=== PATIENT | male | born 1980 | race Caucasian/White ===

== ENCOUNTER 2018-01-24 18:19 | Day surgery (SDC) | payer OTHER ==
--- NOTE | 2018-01-24 19:21 | ER Document Report ---
ED Medical Screen (RME) - General Chief Complaint: Abdominal Pain Stated Complaint: ABDOMINAL PAIN Time Seen by Provider: 01/24/18 19:13 Notes: RAPID MEDICAL EVALUATION DISCLOSURE I have seen this patient as part of a Rapid Medical Evaluation and, if applicable, placed any initially appropriate orders. The patient will be seen and fully evaluated, including a full history and physical exam, by a provider ( in Main ED or Fast Track) when a room becomes available. 37-year-old male here with complaints of periumbilical abdominal pain ongoing for the past few days progressively worsening. Pain is worse with coughing and straining. He still has some at rest. He has not seen anything pop out but when he places his hand over the area while coughing he can feel something bulging out. He has a history of bilateral inguinal hernia repairs but has no prior history of umbilical hernia however states that the laparoscope entered his abdomen through the area where he is currently having pain. EXAM Mild tenderness to palpation at umbilicus With patient coughing, bowel is palpated at area of concern No peritoneal signs TRAVEL OUTSIDE OF THE [place] IN LAST 30 DAYS: No - Related Data Allergies/Adverse Reactions: No Known Allergies Allergy (Unverified 01/24/18 18:25) Past Medical History - Social History Chew tobacco use (# tins/day): No Frequency of alcohol use: Social Drug Abuse: None Renal/ Medical History: Denies: Hx Peritoneal Dialysis
[2018-01-24 20:46] LABS: ABSOLUTE EOSINOPHILS # (AUTO) 0.2 10^3/uL (0.0-0.6); ABSOLUTE LYMPHOCYTES (AUTO) 2.8 10^3/uL (0.5-4.7); ABSOLUTE MONOCYTES (AUTO) 0.8 10^3/uL (0.1-1.4); ABSOLUTE NEUT (AUTO) 4.7 10^3/uL (1.7-8.2); BASOPHILS % (AUTO) 0.4 % (0-2); EOSINOPHILS % (AUTO) 2.3 % (0-6); HEMOGLOBIN 16.5 g/dL (13.5-17.0); LYMPHOCYTES % (AUTO) 33.2 % (13-45); MEAN CORPUSCULAR HEMOGLOBIN 32.1 pg (27.0-33.4); MEAN CORPUSCULAR HGB CONC 34.4 g/dL (32.0-36.0); MEAN CORPUSCULAR VOLUME 93 fl (80-97); MONOCYTES % (AUTO) 9.1 % (3-13); PLATELET COUNT 270 10^3/uL (150-450); RED BLOOD COUNT 5.14 10^6/uL (4.35-5.55); RED CELL DISTRIBUTION WIDTH 12.6 % (11.5-14.0); TOTAL CELLS COUNTED % (AUTO) 100 %; WHITE BLOOD COUNT 8.5 10^3/uL (4.0-10.5)
[2018-01-24 21:04] LABS: ALANINE AMINOTRANSFERASE 37 U/L (21-72); ALBUMIN 4.4 g/dL (3.5-5.0); ALKALINE PHOSPHATASE 73 U/L (38-126); ANION GAP 14 (5-19); ASPARTATE AMINO TRANSFERASE 24 U/L (17-59); BILIRUBIN,DIRECT 0.3 mg/dL (0.0-0.4); BILIRUBIN,TOTAL 0.4 mg/dL (0.2-1.3); BLOOD UREA NITROGEN 13 mg/dL (7-20); CALCIUM 9.5 mg/dL (8.4-10.2); CARBON DIOXIDE 29 mmol/L (22-30); CHLORIDE 100 mmol/L (98-107); GLUCOSE 94 mg/dL (75-110); LIPASE 71.3 U/L (23-300); POTASSIUM 4.9 mmol/L (3.6-5.0); SODIUM 143.3 mmol/L (137-145); TOTAL PROTEIN 7.3 g/dL (6.3-8.2)
[2018-01-24 21:54] LABS: APPEARANCE,URINE CLEAR; BILIRUBIN,URINE NEGATIVE (NEGATIVE); COLOR,URINE YELLOW; GLUCOSE, URINE NEGATIVE (NEGATIVE); KETONES,URINE NEGATIVE (NEGATIVE); LEUKOCYTE ESTERASE,URINE NEGATIVE (NEGATIVE); NITRITE,URINE NEGATIVE (NEGATIVE); PROTEIN,URINE NEGATIVE (NEGATIVE); URINE SPECIFIC GRAVITY 1.017; UROBILINOGEN,URINE NEGATIVE mg/dL (<2.0)
--- NOTE | 2018-01-24 22:19 | ER Document Report ---
ED General - General Mode of Arrival: Ambulatory Information source: Patient TRAVEL OUTSIDE OF THE [place] IN LAST 30 DAYS: No <GABBY GATES - Last Filed: 01/24/18 22:29> <JOSELIN BLOCK - Last Filed: 01/24/18 23:56> - General Chief Complaint: Abdominal Pain Stated Complaint: ABDOMINAL PAIN Time Seen by Provider: 01/24/18 19:13 Notes: Patient is a 37 year old male with a history of bilateral inguinal hernia repairs with mesh (15 years ago) presents to the emergency department complaining of periumbilical abdominal pain onset a few days ago worsening today. Patient states that he has had some abdominal pain over the last few days but when he sat on the toilet this morning and coughed it made is abdominal pain worse. Patient states the pain is exacerbated with coughing and straining. (GABBY GATES) The patient reports that the first doctor to see him pushed very hard on the abdomen when he coughed and pushed the bulk of the hernia mass back inside. After the CT scan the patient states he is actually feeling much better, although the CT does show with 3.8 cm paraumbilical fat-containing hernia. ( JOSELIN BLOCK) - Related Data Allergies/Adverse Reactions: No Known Allergies Allergy (Unverified 01/24/18 18:25) Past Medical History - General Information source: Patient - Social History Smoking Status: Former Smoker - Quit 3 years ago, currently uses E-cigs Chew tobacco use (# tins/day): No Frequency of alcohol use: Social Drug Abuse: None Patient has suicidal ideation: No Patient has homicidal ideation: No Past Surgical History: Reports: Hx Inguinal Hernia - Bilateral inguinal repairs with mesh performed 15 years ago. <GABBY GATES - Last Filed: 01/24/18 22:29> Review of Systems - Review of Systems Constitutional: No symptoms reported EENT: No symptoms reported Cardiovascular: No symptoms reported Respiratory: No symptoms reported Gastrointestinal: See HPI, Abdominal pain Genitourinary: No symptoms reported Male Genitourinary: No symptoms reported Musculoskeletal: No symptoms reported Skin: No symptoms reported Hematologic/Lymphatic: No symptoms reported Neurological/Psychological: No symptoms reported -: Yes All other systems reviewed and negative <GABBY GATES - Last Filed: 01/24/18 22:29> Physical Exam - General General appearance: Appears well, Alert In distress: None - HEENT Head: Normocephalic, Atraumatic Eyes: Normal Conjunctiva: Normal Extraocular movements intact: Yes Pupils: PERRL - Respiratory Respiratory status: No respiratory distress Chest status: Nontender Breath sounds: Normal Chest palpation: Normal - Cardiovascular Rhythm: Regular Heart sounds: Normal auscultation Murmur: No Friction rub: No Gallop: None auscultated - Abdominal Inspection: Obese Distension: No distension Bowel sounds: Normal Tenderness: Tender - RLQ tender to palpaiton which reproduces umbilical pain. Tender to palpation just above the umbilicus region. No palpable hernia. - Back Back: Normal - Extremities General upper extremity: Normal ROM General lower extremity: Normal ROM - Neurological Neuro grossly intact: Yes Cognition: Normal Orientation: AAOx4 [place] Coma Scale Eye Opening: Spontaneous [place] Coma Scale Verbal: Oriented Elisabeth Coma Scale Motor: Obeys Commands [place] Coma Scale Total: 15 Speech: Normal - Psychological Associated symptoms: Normal affect, Normal mood - Skin Skin Temperature: Warm Skin Moisture: Dry Skin Color: Normal <GABBY GATES - Last Filed: 01/24/18 22:29> - Vital signs Vitals: Temp Pulse Resp BP Pulse Ox 98.6 F 70 16 146/84 H 96 01/24/18 18:25 01/24/18 18:25 01/24/18 18:25 01/24/18 18:25 01/24/18 18:25 Course - Laboratory Result Diagrams: 01/24/18 20:29 01/24/18 20:29 <GABBY GATES - Last Filed: 01/24/18 22:29> - Laboratory Result Diagrams: 01/24/18 20:29 01/24/18 20:29 - Diagnostic Test Radiology reviewed: Reports reviewed - 3.8 cm fat-containing paraumbilical hernia without signs of inflammation. - Consults Dr. Blount Time consulted: 23:40 Consulted provider: will come to ER <JOSELIN BLOCK - Last Filed: 01/24/18 23:56> - Re-evaluation Re-evalutation: 01/24/18 23:46 Reevaluation of the patient after CT scan, he is quite comfortable and states he has no pain at all at this time. I am not really able to palpate much of a hernia if anything except when he coughs hard. He does have significant diastases just above the umbilicus. (JOSELIN BLOCK) - Vital Signs Vital signs: Temp Pulse Resp BP Pulse Ox 98.6 F 70 16 146/84 H 96 01/24/18 18:25 01/24/18 18:25 01/24/18 18:25 01/24/18 18:25 01/24/18 18:25 Discharge <GABBY GATES - Last Filed: 01/24/18 22:29> - Discharge Admitting Provider: Surgicalist Unit Admitted: Surgical Floor <JOSELIN BLOCK - Last Filed: 01/24/18 23:56> - Discharge Clinical Impression: Paraumbilical hernia Condition: Stable Disposition: ADMITTED INPATIENT Scribe Attestation: 01/24/18 22:54 I personally performed the services described in the documentation, reviewed and edited the documentation which was dictated to the scribe in my presence, and it accurately records my words and actions. (JOSELIN BLOCK) Scribe Documentation - Scribe Written by Alton:: Alton Perdomo, 01/24/2018 22:32 acting as scribe for :: Frandy <GABBY GATES - Last Filed: 01/24/18 22:29>
--- NOTE | 2018-01-24 23:26 | RADIOLOGY REPORT (SQ) ---
EXAM DESCRIPTION: CT ABD/PELVIS WITH IV ORAL COMPLETED DATE/TIME: 01/24/2018 10:46 pm REASON FOR STUDY: umbilical hernia pain; eval COMPARISON: None. TECHNIQUE: CT scan of the abdomen and pelvis performed using helical scanning technique with dynamic intravenous contrast injection. No oral contrast. Images reviewed with lung, soft tissue, and bone windows. Reconstructed coronal and sagittal MPR images reviewed. Delayed images for evaluation of the urinary system also acquired. All images stored on PACS. All CT scanners at this facility use dose modulation, iterative reconstruction, and/or weight based d osing when appropriate to reduce radiation dose to as low as reasonably achievable (ALARA). [facility]: Dose Right [facility]: CareDose [facility]: Dose Right [facility]: Teradose 4D [facility]: [place] RENAL FUNCTION: GFR > 60. RADIATION DOSE: . LIMITATIONS: None. FINDINGS: LOWER CHEST: No significant findings. No nodules or infiltrates. LIVER: Normal size. No masses. No dilated ducts. SPLEEN: Normal size. No focal lesions. PANCREAS: No masses. No significant calcifications. No adjacent inflammation or peripancreatic fluid collections. Pancreatic duct not dilated. GALLBLADDER: No identified stones by CT criteria. No inflammatory changes to suggest cholecystitis. ADRENAL GLANDS: No significant masses or asymmetry. RIGHT KIDNEY AND URETER: No solid masses. No significant calcifications. No hydronephrosis or hyd roureter. LEFT KIDNEY AND URETER: No solid masses. No significant calcifications. No hydronephrosis or hydr oureter. AORTA AND VESSELS: No aneurysm. No dissection. Renal arteries, SMA, celiac without stenosis. RETROPERITONEUM: No retroperitoneal adenopathy, hemorrhage or masses. BOWEL AND PERITONEAL CAVITY: No masses or inflammatory changes. No free fluid or peritoneal masses. APPENDIX: Normal. PELVIS: No mass. No free fluid. Normal bladder. ABDOMINAL WALL: 3.8 cm fat containing paraumbilical hernia. BONES: No acute findings. OTHER: No other significant finding. IMPRESSION: 3.8 cm fat containing paraumbilical hernia. Otherwise, no acute findings. TECHNICAL DOCUMENTATION: JOB ID: [id number] Quality ID # [id number]: Final reports with documentation of one or more dose reduction techniques (e.g., Au tomated exposure control, adjustment of the mA and/or kV according to patient size, use of iterative reconstruction technique) 2010 [employer]- All Rights Reserved Reading location - IP/workstation name: [email or web address]
--- NOTE | 2018-01-25 00:13 | PDOC H&P ---
History of Present Illness Admission Date/PCP: 01/25/18 00:00 History of Present Illness: POLA BRAUN is a 37 year old male with a hx of bulge and pain at the umbilicus. A CT scan A/P has been done tonight revealing a fat containing umbilical hernia. Social History Smoking Status: Former Smoker - Quit 3 years ago, currently uses E-cigs Family History Family History: Reviewed & Not Pertinent Parental Family History Reviewed: No Children Family History Reviewed: No Sibling(s) Family History Reviewed.: No Medication/Allergy Allergies/Adverse Reactions: No Known Allergies Allergy (Unverified 01/24/18 18:25) Physical Exam Vital Signs: Temp Pulse Resp BP Pulse Ox 98.6 F 70 16 146/84 H 96 01/24/18 18:25 01/24/18 18:25 01/24/18 18:25 01/24/18 18:25 01/24/18 18:25 General appearance: PRESENT: no acute distress, morbidly obese Head exam: PRESENT: atraumatic Eye exam: PRESENT: EOMI Neck exam: PRESENT: full ROM Respiratory exam: PRESENT: clear to auscultation henrique Cardiovascular exam: PRESENT: RRR GI/Abdominal exam: PRESENT: hernia - umbilical, normal bowel sounds, soft, other - presence of defect at the umbilicus Rectal exam: PRESENT: deferred Neurological exam: PRESENT: alert, altered, normal gait Psychiatric exam: PRESENT: appropriate affect Skin exam: PRESENT: warm Results Impressions: Abdomen/Pelvis CT 01/24/18 19:19 IMPRESSION: 3.8 cm fat containing paraumbilical hernia. Otherwise, no acute findings. Assessment & Plan - Diagnosis (1) Paraumbilical hernia Is this a current diagnosis for this admission?: Yes - Plan Summary Plan Summary: A/ Incarcerated paraumbilical hernia containing fat P/ Admit NPO IVF Plan open umbilical herniorraphy with mesh in AM 01/25/18
[2018-01-25] MEDS ORDERED: NORMAL SALINE 1000 ML 1,000 ML IV PRN (01:55)
[2018-01-25] MEDS ORDERED: CEFAZOLIN 2 GM/D5W RTU 2 GM/50 ML RTUPB IV PRN (07:00)
[2018-01-25] MEDS ORDERED: CEFAZOLIN SODIUM 2 GM in DEXTROSE 5%-WATER 100 ML IV PRN (07:18)
[2018-01-25] MEDS ORDERED: FENTANYL CITRATE INJ/PF 100 MCG/2 ML AMPUL ONE (09:01)
[2018-01-25] MEDS ORDERED: ACETAMINOPHEN 100 ML IV ONE (09:01)
[2018-01-25] MEDS ORDERED: MIDAZOLAM 2 MG/2 ML INJ ONE (09:01)
[2018-01-25] MEDS ORDERED: FENTANYL CITRATE INJ/PF 250 MCG/5 ML AMPULE ONE (09:01)
[2018-01-25] MEDS ORDERED: PROPOFOL INJ 200 MG/20 ML VIAL IV ONE (09:01)
[2018-01-25] MEDS ORDERED: MORPHINE SULFATE 10 MG/ML INJ ONE (09:02)
[2018-01-25] MEDS ORDERED: BUPIVACAINE HCL 0.5%-EPI 1:200000 INJ/PF 30 ML VIAL ONE (09:16)
[2018-01-25] MEDS ORDERED: FENTANYL CITRATE INJ/PF 100 MCG/2 ML AMPUL IV PRN ×3 (10:06)
[2018-01-25] MEDS ORDERED: MORPHINE SULFATE 10 MG/ML INJ IV PRN (10:06)
[2018-01-25] MEDS ORDERED: MEPERIDINE HCL/PF INJ 25 MG/1 ML DISP.SYRIN IV PRN (10:06)
[2018-01-25] MEDS ORDERED: DIPHENHYDRAMINE HCL 50 MG/ML VIAL IV PRN (10:06)
[2018-01-25] MEDS ORDERED: PROMETHAZINE HCL INJ 25 MG/1 ML VIAL IV PRN (10:06)
--- NOTE | 2018-01-25 11:14 | DISCHARGE SUMMARY E ---
Discharge Summary NAME: POLA BRAUN : 1980 AGE: 37Y ADMITTED: 01/25/2018 DISCHARGED: 01/25/2018 FINAL DIAGNOSIS: Incarcerated umbilical hernia. PROCEDURE: Incarcerated umbilical herniorrhaphy with Ventralex mesh on 01/25. COMPLICATIONS: None. HOSPITAL COURSE: This is a morbidly obese 37-year-old male who presented to the emergency room early in the morning on 01/25/2018 with a complaint of umbilical bulge and pain. A CAT scan was done revealing the presence of an incarcerated umbilical hernia containing omental fat. The patient was admitted overnight and taken to surgery the following morning for repair of the hernia. The procedure was uneventful. His postop course was unremarkable. DISCHARGE INSTRUCTIONS/FOLLOWUP: The patient was then discharged the same day, 01/25, and he was given a followup appointment with the surgical clinic in a week. He was instructed to remove the tape and sponges the day following the surgery to leave the Tegaderm in place and to shower only for about 2 weeks. No heavy lifting more than 10 pounds for 3 months. Regular diet. Tylenol and Aleve for pain. The patient was given an abdominal binder for pain control and instructed to resume diet and resume driving in a.m. DICTATING PHYSICIAN: MAREN ROBERTS M.D. [id number] PHY#: [id number] ID: [id number] JOB#: [id number] ACCT: [id number] cc:rC TONG MD, M.D. MARSHALL B. FRINK, M.D. > MTDD
--- NOTE | 2018-01-25 11:16 | OPERATIVE REPORT E ---
Operative Report NAME: POLA BRAUN : 1980 AGE: 37Y DATE OF SURGERY: 01/25/2018 ROOM: 414 PREOPERATIVE DIAGNOSIS: Incarcerated umbilical hernia. POSTOPERATIVE DIAGNOSIS: Incarcerated umbilical hernia. PROCEDURE: Open incarcerated umbilical herniorrhaphy with Ventralex mesh. SURGEON: MAREN ROBERTS M.D. COMPLICATIONS: None. ANESTHESIA: General plus 10 mL of 0.5% Marcaine with epinephrine. FLUIDS: 550 mL of Crystalloid. COMPLICATIONS: None. URINE OUTPUT: Not applicable. INDICATIONS AND FINDINGS: This is a healthy 37-year-old morbidly obese male who presented to the emergency room with umbilical pain and bulge yesterday evening. A CAT scan revealed the presence of an incarcerated umbilical hernia containing fat. The patient was admitted overnight and scheduled for umbilical herniorrhaphy with mesh today. DESCRIPTION OF PROCEDURE: The procedure was done in the operating room. Patient was placed in the supine position. General anesthesia was induced by endotracheal intubation. Abdomen was shaved, prepped and draped in the usual fashion. A lower umbilical smiley incision was made with a #15 blade; an upper skin flap was elevated with the same blade and then with Metzenbaum scissors. The umbilical sac was then gently dissected with Metzenbaum scissors circumferentially, detached from the umbilical skin. The sac was then left undisturbed and pushed inside the preperitoneal space. The preperitoneal space was then entered with an index finger, which was rotated circumferentially to develop a space in the preperitoneum. After this was accomplished, a 6.8 mm Ventralex mesh was inserted with an Allis clamp into the preperitoneal space and deployed. The edges of the defect were approximated with an 0-Prolene [id number] suture, which was incorporated in the tail of the mesh. The tail of the mesh was then divided to length. The subcutaneous tissue was irrigated with normal saline. Deep inverted interrupted 3-0 Vicryl sutures were placed to approximate the subcutaneous tissue. The skin was approximated with 4-0 running subcuticular suture. Dermabond was then applied on the wound, followed by 2 x 2 sponge, and tape as a compressive dressing. The patient tolerated the procedure well, extubated, and transferred to the recovery room in satisfactory condition. DICTATING PHYSICIAN: MAREN ROBERTS M.D. [id number] PHY#: [id number] ID: [id number] JOB#: [id number] ACCT: [id number] cc:MAREN ROBERTS M.D. > OFELIA
--- NOTE | 2018-01-25 11:16 | Operative Report ---
Nonrecallable Operative Report DATE OF SURGERY: 01/25/18 PREOPERATIVE DIAGNOSIS: incarcerated umbilical hernia POSTOPERATIVE DIAGNOSIS: same OPERATION: open umbilical herniorraphy with Ventralex mesh SURGEON: MAREN ROBERTS ANESTHESIA: GA - plus 10 mL 0.5% marcaine with epi TISSUE REMOVED OR ALTERED: none COMPLICATIONS: none ESTIMATED BLOOD LOSS: < 2 mL INTRAOPERATIVE FINDINGS: umbilical hernia sac PROCEDURE: see dictation
[2018-01-25] MEDS ORDERED: ONDANSETRON HCL INJ/PF 4 MG/2 ML SDV IV PRN (11:20)
[2018-01-25] MEDS ORDERED: GUAIFENESIN SYRP 200 MG/10 ML UDC PO PRN (11:20)
[2018-01-25] MEDS ORDERED: GLYCOPYRROLATE INJ 0.4 MG/2 ML VIAL ONE (11:41)
[2018-01-25] MEDS ORDERED: ONDANSETRON HCL INJ/PF 4 MG/2 ML SDV ONE (11:41)
[2018-01-25] MEDS ORDERED: LIDOCAINE 2% INJ-PF (20 MG/ML) 2 ML AMPUL ONE (11:41)
[2018-01-25] MEDS ORDERED: NEOSTIGMINE METHYLSULFATE 10 MG/10 ML VIAL ONE (11:41)
[2018-01-25] MEDS ORDERED: VECURONIUM BROMIDE INJ 10 MG VIAL IV ONE (11:41)
[2018-01-25] MEDS ORDERED: SUCCINYLCHOLINE CHLORIDE INJ 200 MG/10 ML VIAL ONE (11:41)
[2018-01-25] MEDS ORDERED: DEXAMETHASONE SOD PHOSPHATE INJ 4 MG/1 ML VIAL ONE (11:41)
[2018-01-25] MEDS ORDERED: ACETAMINOPHEN 325 MG TABLET PO PRN (11:49)
[2018-01-25] MEDS ORDERED: ACETAMINOPHEN 325 MG TABLET ONE (11:54)
[2018-01-25 13:06] VITALS: BP 114/62
== END 2018-01-25 13:50 | disposition home or self-care (01) ==
LOC: ER 18:19 → OROUT 01-25 → UNDOADMIN 01-25 → EH 01-25 → 4N 01-25 01:45 → EH 01-25 01:45 → OROUT 01-25 13:50 → UNDODISIN 01-25 13:50
PROVIDERS: ATTEND Surgery
DX: K42.0 Umbilical hernia with obstruction, without gangrene (principal); F17.210 Nicotine dependence, cigarettes, uncomplicated; E66.9 Obesity, unspecified; Z68.41 Body mass index [BMI] 40.0-44.9, adult
CPT/HCPCS: 99285; 36415; 83690; 85025; 80053; 81001; 74177; 49587; J2250; J3490 ×3; J1100; J3010; J0330; J2405; J7030; J2704; J0131; 830; J2270

== ENCOUNTER 2019-06-04 00:17 | Observation (INO) | payer OTHER ==
--- NOTE | 2019-06-04 02:07 | ER Document Report ---
ED Animal Bite - General Chief Complaint: Snake Bite Stated Complaint: SNAKE BITE Time Seen by Provider: 06/04/19 01:43 Information source: Patient, Friend Notes: Patient complains of snakebite to left index finger distal phalanx volar aspect at approximately 10 PM, which is about 4 hours ago. He went to black pickler the snake with his nondominant hand, he is right-handed, and the snake bit him. He thinks it is a copperhead. He is treated the snakebite himself by slicing open the finger and trying to suck out venom. He has also medicated himself with alcohol and Benadryl. He denies previous injury to his left hand. He complains of swelling of the left hand and left forearm. He denies any chest pain or shortness of breath. Denies prior past medical history. No other complaints. TRAVEL OUTSIDE OF THE [place] IN LAST 30 DAYS: No - Related Data Allergies/Adverse Reactions: No Known Allergies Allergy (Unverified 01/24/18 18:25) Past Medical History - Social History Smoking Status: Former Smoker Chew tobacco use (# tins/day): No Frequency of alcohol use: Social Drug Abuse: None Family History: Reviewed & Not Pertinent Patient has suicidal ideation: No Patient has homicidal ideation: No Pulmonary Medical History: Reports: Hx Asthma Renal/ Medical History: Denies: Hx Peritoneal Dialysis Past Surgical History: Reports: Hx Abdominal Surgery, Hx Inguinal Hernia - Bilateral inguinal repairs with mesh performed 15 years ago. Review of Systems - Review of Systems Constitutional: denies: Chills, Fever -: Yes All other systems reviewed and negative Physical Exam - Vital signs Vitals: Temp Pulse Resp BP Pulse Ox 98.0 F 93 20 136/79 H 95 06/04/19 00:26 06/04/19 00:26 06/04/19 00:26 06/04/19 00:26 06/04/19 00:26 Interpretation: Normal - General General appearance: Appears well, Alert - HEENT Head: Normocephalic, Atraumatic Eyes: Normal Pupils: PERRL - Respiratory Respiratory status: No respiratory distress Chest status: Nontender Breath sounds: Normal Chest palpation: Normal - Cardiovascular Rhythm: Regular Heart sounds: Normal auscultation Murmur: No - Abdominal Inspection: Normal Distension: No distension Bowel sounds: Normal Tenderness: Nontender Organomegaly: No organomegaly - Back Back: Normal, Nontender - Extremities General upper extremity: Tender - Patient has swelling of the volar aspect of his left index finger and is not able to completely flex his left index finger. The wound on the volar aspect of his left index finger distal phalanx is approximately 1 x1 cm and is not actively bleeding. General lower extremity: Normal inspection, Nontender, Normal color, Normal ROM, Normal temperature, Normal weight bearing. No: Hannah's sign - Neurological Neuro grossly intact: Yes Cognition: Normal Orientation: AAOx4 [place] Coma Scale Eye Opening: Spontaneous Elisabeth Coma Scale Verbal: Oriented Elisabeth Coma Scale Motor: Obeys Commands Elisabeth Coma Scale Total: 15 Speech: Normal Motor strength normal: LUE, RUE, LLE, RLE Sensory: Normal - Psychological Associated symptoms: Normal affect, Normal mood - Skin Skin Temperature: Warm Skin Moisture: Dry Skin Color: Normal Course - Re-evaluation Re-evalutation: 06/04/19 02:45 DISCUSSED CASE WITH POISON CONTROL, WHO DOES NOT RECOMMEND METAL BONDING HELPER-PASCUAL AT THIS TIME. SNAKEBITE ORDER SET ENTERED. 06/04/19 02:52 06/04/19 03:41 DISCUSSED CASE IN DETAIL WITH SURGEON DRY DIP WORKER DR. HALL AT [id number], WHO RECOMMENDS CROFAB AND AGREES WITH ADMISSION. HAND ELEVATION. PT STABLE. HAND XRAY SHOWS SOFT TISSUE SWELLING. 06/04/19 03:42 06/04/19 03:50 ON RE-EXAM, LEFT HAND SWELLING IS STABLE. 06/04/19 04:01 ZOSYN ORDERED PROPHYLACTICALLY, SINCE PT USED HIS MOUTH TO "SUCK THE VENOM OUT OF THE FINGER". 06/04/19 04:54 Finger splint ordered to prophylactically prevent infection. - Vital Signs Vital signs: Temp Pulse Resp BP Pulse Ox 98.3 F 93 20 129/84 H 98 06/04/19 00:39 06/04/19 00:39 06/04/19 00:26 06/04/19 00:39 06/04/19 02:15 - Laboratory Result Diagrams: 06/04/19 02:05 06/04/19 02:05 Laboratory results interpreted by me: 06/04/19 02:05 Creatine Kinase 194 H - Diagnostic Test Radiology reviewed: Image reviewed, Reports reviewed Critical Care Note - Critical Care Note Total time excluding time spent on procedures (mins): 35 Discharge - Discharge Clinical Impression: Snake bite Qualifiers: Encounter type: initial encounter Qualified Code(s): W59.11XA - Bitten by n onkhoius snake, initial encounter Condition: Serious Disposition: ADMITTED OBSERVATION Admitting Provider: Surgicalist Unit Admitted: Surgical Floor
[2019-06-04 02:16] LABS: ABSOLUTE BASOPHILS # (AUTO) 0.1 10^3/uL (0.0-0.2); ABSOLUTE EOSINOPHILS # (AUTO) 0.2 10^3/uL (0.0-0.6); ABSOLUTE LYMPHOCYTES (AUTO) 3.2 10^3/uL (0.5-4.7); ABSOLUTE MONOCYTES (AUTO) 0.7 10^3/uL (0.1-1.4); BASOPHILS % (AUTO) 0.5 % (0-2); EOSINOPHILS % (AUTO) 1.9 % (0-6); HEMOGLOBIN 14.4 g/dL (13.5-17.0); LYMPHOCYTES % (AUTO) 35.1 % (13-45); MEAN CORPUSCULAR HGB CONC 33.4 g/dL (32.0-36.0); MEAN CORPUSCULAR VOLUME 93 fl (80-97); MONOCYTES % (AUTO) 7.3 % (3-13); PLATELET COUNT 273 10^3/uL (150-450); RED BLOOD COUNT 4.64 10^6/uL (4.35-5.55); RED CELL DISTRIBUTION WIDTH 13.4 % (11.5-14.0); SEGMENTED NEUTROPHILS % (AUTO) 55.2 % (42-78); TOTAL CELLS COUNTED % (AUTO) 100 %; WHITE BLOOD COUNT 9.2 10^3/uL (4.0-10.5)
[2019-06-04 02:20] LABS: INTERNATIONAL RATION (INR) 1.02; PROTHROMBIN TIME 13.4 SEC (11.4-15.4)
[2019-06-04 02:32] LABS: ALBUMIN 4.5 g/dL (3.5-5.0); ALKALINE PHOSPHATASE 71 U/L (38-126); ANION GAP 15 (5-19); ASPARTATE AMINO TRANSFERASE 31 U/L (17-59); BILIRUBIN,DIRECT 0.2 mg/dL (0.0-0.4); BILIRUBIN,TOTAL 0.3 mg/dL (0.2-1.3); BLOOD UREA NITROGEN 20 mg/dL (7-20); CALCIUM 8.9 mg/dL (8.4-10.2); CARBON DIOXIDE 23 mmol/L (22-30); CHLORIDE 103 mmol/L (98-107); GLUCOSE 95 mg/dL (75-110); POTASSIUM 3.9 mmol/L (3.6-5.0); TOTAL PROTEIN 7.4 g/dL (6.3-8.2)
--- NOTE | 2019-06-04 02:47 | RADIOLOGY REPORT (SQ) ---
EXAM DESCRIPTION: XR HAND 3 OR MORE VIEWS COMPLETED DATE/TME: 06/04/2019 01:58 CLINICAL HISTORY: 39 years, Male, SNAKE BITE COMPARISON: None. NUMBER OF VIEWS: 3 TECHNIQUE: 3 view left hand LIMITATIONS: None. FINDINGS: Negative for fracture or dislocation. Diffuse soft tissue swelling. No soft tissue gas IMPRESSION: Soft tissue swelling copyright 2010 [employer] ([employer])- All Rights Reserved
[2019-06-04 03:40] LABS: PARTIAL THROMBOPLASTIN TIME 30.5 SEC (23.5-35.8)
[2019-06-04 03:43] LABS: D-DIMER 0.37 ug/mL (0.00-0.50)
[2019-06-04] MEDS ORDERED: ANTIVENIN,CROTALIDAE FAB(OVIN) INJ 1 VIAL IV ONE (03:43)
[2019-06-04] MEDS ORDERED: PIPERACILLIN/TAZOBACTAM 3.375 GM VIAL IV ONE (04:00)
[2019-06-04 05:21] LABS: APPEARANCE,URINE CLEAR; BILIRUBIN,URINE NEGATIVE (NEGATIVE); COLOR,URINE YELLOW; GLUCOSE, URINE NEGATIVE (NEGATIVE); KETONES,URINE TRACE mg/dL (NEGATIVE); LEUKOCYTE ESTERASE,URINE NEGATIVE (NEGATIVE); NITRITE,URINE NEGATIVE (NEGATIVE); PROTEIN,URINE NEGATIVE (NEGATIVE); URINE SPECIFIC GRAVITY 1.018; UROBILINOGEN,URINE NEGATIVE mg/dL (<2.0)
--- NOTE | 2019-06-04 06:34 | PDOC H&P ---
History of Present Illness Admission Date/PCP: 06/04/19 04:01 Patient complains of: Pains along the left index finger radiating to the and, to the forearm and to the posterior above elbow area. History of Present Illness: POLA BRAUN is a 39 year old male while trying to grab probable copperhead snake was bitten on the left index finger. He claims that his snake was small about 6 to 7 inches long and 5 mm in diameter. He tried to cut the site that was bitten on the tip of the left index finger and sucked on the venous. This happened around 10 PM last night. He went to the ED around 3:30 AM and the hand was noted to be swollen. I suggested to the ED physician to give the patient antivenom according to our protocol and obtained laboratory studies. Also since patient has contamination from patient's saliva patient should also be given antibiotics for broad spectrum. Patient denies fever chills or tachycardia. He did drank alcohol and Benadryl after he was bitten. Past Medical History Pulmonary Medical History: Reports: Asthma Social History Smoking Status: Former Smoker Frequency of Alcohol Use: Social Hx Recreational Drug Use: Yes Drugs: Marijuana Family History Family History: Reviewed & Not Pertinent Parental Family History Reviewed: Yes Children Family History Reviewed: No Sibling(s) Family History Reviewed.: No Medication/Allergy Home Medications: No Home Medications 01/25/18 Allergies/Adverse Reactions: No Known Allergies Allergy (Unverified 01/24/18 18:25) Review of Systems Constitutional: PRESENT: as per HPI Physical Exam Vital Signs: Temp Pulse Resp BP Pulse Ox 98.6 F 93 15 134/88 H 92 06/04/19 06:01 06/04/19 00:39 06/04/19 06:01 06/04/19 06:01 06/04/19 06:01 Intake & Output 06/02/19 06/03/19 06/04/19 06:59 06:59 06:59 Weight 119.8 kg General appearance: PRESENT: mild distress Head exam: PRESENT: atraumatic Eye exam: PRESENT: conjunctiva pink Mouth exam: PRESENT: moist Neck exam: PRESENT: full ROM Respiratory exam: PRESENT: clear to auscultation henrique Cardiovascular exam: PRESENT: RRR Pulses: PRESENT: normal radial pulses Vascular exam: PRESENT: normal capillary refill GI/Abdominal exam: PRESENT: soft Rectal exam: PRESENT: deferred Extremities exam: PRESENT: full ROM, other - There is some mild swelling of the left index finger including the left hand and minimal swelling of the left forearm. There is redness along the left metacarpophalangeal joint dorsal area. The there is 1cm laceration in the tip of the left index finger based on the examination by ER physician. At present there is a splint and gauze over the finger. Musculoskeletal exam: PRESENT: ambulatory Neurological exam: PRESENT: alert, oriented to person, oriented to place, oriented to time, oriented to situation Psychiatric exam: PRESENT: appropriate affect Skin exam: PRESENT: normal color, warm Results Laboratory Results: 06/04/19 02:05 06/04/19 02:05 06/04/19 06/04/19 06/04/19 02:05 02:05 04:52 WBC 9.2 RBC 4.64 Hgb 14.4 Hct 43.0 MCV 93 MCH 31.0 MCHC 33.4 RDW 13.4 Plt Count 273 Seg Neutrophils % 55.2 Sodium 140.9 Potassium 3.9 Chloride 103 Carbon Dioxide 23 Anion Gap 15 BUN 20 Creatinine 0.86 Est GFR ( Amer) > 60 Glucose 95 Calcium 8.9 Total Bilirubin 0.3 AST 31 Alkaline Phosphatase 71 Total Protein 7.4 Albumin 4.5 Urine Color YELLOW Urine Appearance CLEAR Urine pH 6.0 Ur Specific [place] 1.018 Urine Protein NEGATIVE Urine Glucose (UA) NEGATIVE Urine Ketones TRACE H Urine Blood NEGATIVE Urine Nitrite NEGATIVE Ur Leukocyte Esterase NEGATIVE Urine WBC (Auto) 0 Urine RBC (Auto) 0 06/04/19 02:05 Creatine Kinase 194 H Impressions: Hand X-Ray 06/04/19 01:58 IMPRESSION: Soft tissue swelling copyright 2011 [employer]- All Rights Reserved Assessment & Plan - Diagnosis (1) laceration tip of index finger Is this a current diagnosis for this admission?: Yes (2) Snake bite Qualifiers: Encounter type: initial encounter Qualified Code(s): W59.11XA - Bitten by nonvenomous snake, initial encounter - Time Time Spent: 30 to 50 Minutes - Inpatient Certification Medical Necessity: Need Close Monitoring Due to Risk of Patient Decompensation, Need for IV Antibiotics, Risk of Complication if Not Cared For in Hospital - Plan Summary Plan Summary: 1 elevation of the left arm 2 prophylactic antibiotics IV 3monitor lab work including coagulation parameters 4 XRAY left hand-Normal findings,no foreign body
[2019-06-04] MEDS ORDERED: GLUCAGON,HUMAN RECOMB 1 MG INJ SUBCUT PRN (07:51)
[2019-06-04] MEDS ORDERED: DEXTROSE 5%-LACTATED RINGERS 1,000 ML IV PRN (07:51)
[2019-06-04] MEDS ORDERED: DEXTROSE 40% GEL 15 GM TUBE PO PRN ×2 (07:51)
[2019-06-04] MEDS ORDERED: DEXTROSE 50%-WATER 25 GM/50 ML DISP.SYRIN IV PRN ×2 (07:51)
[2019-06-04] MEDS ORDERED: KETOROLAC TROMETHAMINE INJ/PF 30 MG/1 ML SDV IV PRN (07:58)
[2019-06-04 09:31] LABS: PARTIAL THROMBOPLASTIN TIME 29.9 SEC (23.5-35.8)
[2019-06-04 09:38] LABS: INTERNATIONAL RATION (INR) 0.98
[2019-06-04] MEDS: DOCUSATE SODIUM 100 MG CAPSULE PO SCH ×2 (10:30→18:26)
[2019-06-04] MEDS: PIPERACILLIN SODIUM/TAZOBACTAM 3.375 GM in NORMAL SALINE 100 ML IV SCH ×2 (11:35→18:26)
[2019-06-04] MEDS ORDERED: PIPERACILLIN/TAZOBACTAM 3.375 GM VIAL IV SCH (12:00)
[2019-06-04 19:45] LABS: ABSOLUTE EOSINOPHILS # (AUTO) 0.2 10^3/uL (0.0-0.6); ABSOLUTE MONOCYTES (AUTO) 0.7 10^3/uL (0.1-1.4); BASOPHILS % (AUTO) 0.6 % (0-2); EOSINOPHILS % (AUTO) 3.1 % (0-6); HEMATOCRIT 41.2 % (37.9-51.0); HEMOGLOBIN 14.2 g/dL (13.5-17.0); LYMPHOCYTES % (AUTO) 33.6 % (13-45); MEAN CORPUSCULAR HEMOGLOBIN 31.6 pg (27.0-33.4); MEAN CORPUSCULAR HGB CONC 34.5 g/dL (32.0-36.0); MEAN CORPUSCULAR VOLUME 92 fl (80-97); MONOCYTES % (AUTO) 11.4 % (3-13); PLATELET COUNT 247 10^3/uL (150-450); RED BLOOD COUNT 4.49 10^6/uL (4.35-5.55); SEGMENTED NEUTROPHILS % (AUTO) 51.3 % (42-78); TOTAL CELLS COUNTED % (AUTO) 100 %; WHITE BLOOD COUNT 5.9 10^3/uL (4.0-10.5)
[2019-06-04 19:52] LABS: FIBRINOGEN 300 mg/dL (209-497); INTERNATIONAL RATION (INR) 1.06; PROTHROMBIN TIME 13.9 SEC (11.4-15.4)
[2019-06-05 02:10] VITALS: BP 157/88
--- NOTE | 2019-06-06 17:44 | PDOC DISCHARGE SUMMARY ---
General - Admit/Disc Date/PCP Admission Date/Primary Care Provider: 06/04/19 04:01 Discharge Date: 06/04/19 - Discharge Diagnosis Final Diagnosis: Snakebite to finger - Assessment Summary: Patient is a 39-year-old white male who sustained a snakebite, allegedly copperhead, to the finger. Patient lanced it with a small knife and personally sucked the tissue of possible venom and presented to the emergency department via ground rescue complaining of same. He was given CroFab admitted to the surgical service for observation. The patient showed no evidence of DIC. His laboratory parameters were normal limits. Kept on IV antibiotics for 12 hours. By the afternoon of the hospital stay he was ready for discharge home as there was no progression of the swelling or redness. Range of motion of the finger and hand was preserved. - Additional Information Discharge Diet: As Tolerated Discharge Activity: Activity As Tolerated Home Medications: Albuterol Sulfate [Proair Hfa Inhalation Aerosol 8.5 gm Mdi] 1 puff IH Q4HP PRN 06/04/19 History of Present Illiness History of Present Illness: POLA BRAUN is a 39 year old male Physical Exam Vital Signs: Temp Pulse Resp BP Pulse Ox 97.9 F 54 L 17 157/88 H 100 06/04/19 20:42 06/04/19 20:42 06/04/19 20:42 06/04/19 20:20 06/04/19 20:42 Intake & Output 06/05/19 06/06/19 06/07/19 06:59 06:59 06:59 Intake Total 100 Balance 100 Results Laboratory Results: WBC 5.9 10^3/uL (4.0-10.5) 06/04/19 19:25 RBC 4.49 10^6/uL (4.35-5.55) 06/04/19 19:25 Hgb 14.2 g/dL (13.5-17.0) 06/04/19 19:25 Hct 41.2 % (37.9-51.0) 06/04/19 19:25 MCV 92 fl (80-97) 06/04/19 19:25 MCH 31.6 pg (27.0-33.4) 06/04/19 19:25 MCHC 34.5 g/dL (32.0-36.0) 06/04/19 19:25 RDW 13.0 % (11.5-14.0) 06/04/19 19:25 Plt Count 247 10^3/uL (150-450) 06/04/19 19:25 Lymph % (Auto) 33.6 % (13-45) 06/04/19 19:25 [place] % (Auto) 11.4 % (3-13) 06/04/19 19:25 Eos % (Auto) 3.1 % (0-6) 06/04/19 19:25 Baso % (Auto) 0.6 % (0-2) 06/04/19 19:25 Absolute Neuts (auto) 3.0 10^3/uL (1.7-8.2) 06/04/19 19: Absolute Lymphs (auto) 2.0 10^3/uL (0.5-4.7) 06/04/19 19:25 Absolute Monos (auto) 0.7 10^3/uL (0.1-1.4) 06/04/19 19:25 Absolute Eos (auto) 0.2 10^3/uL (0.0-0.6) 06/04/19 19:25 Absolute Basos (auto) 0.0 10^3/uL (0.0-0.2) 06/04/19 19:25 Seg Neutrophils % 51.3 % (42-78) 06/04/19 19:25 PT 13.9 SEC (11.4-15.4) 06/04/19 19:25 INR 1.06 06/04/19 19:25 APTT 29.9 SEC (23.5-35.8) 06/04/19 08:32 Fibrinogen 300 mg/dL (209-497) 06/04/19 19:25 D-Dimer 0.37 ug/mL (0.00-0.50) 06/04/19 02:05 Sodium 140.9 mmol/L (137-145) 06/04/19 02:05 Potassium 3.9 mmol/L (3.6-5.0) 06/04/19 02:05 Chloride 103 mmol/L (98-107) 06/04/19 02:05 Carbon Dioxide 23 mmol/L (22-30) 06/04/19 02:05 Anion Gap 15 (5-19) 06/04/19 02:05 BUN 20 mg/dL (7-20) 06/04/19 02:05 Creatinine 0.86 mg/dL (0.52-1.25) 06/04/19 02:05 Est GFR ( Amer) > 60 (>60) 06/04/19 02:05 Est GFR (MDRD) Non-Af > 60 (>60) 06/04/19 02:05 Glucose 95 mg/dL (75-110) 06/04/19 02:05 Calcium 8.9 mg/dL (8.4-10.2) 06/04/19 02:05 Total Bilirubin 0.3 mg/dL (0.2-1.3) 06/04/19 02:05 Direct Bilirubin 0.2 mg/dL (0.0-0.4) 06/04/19 02:05 Neonat Total Bilirubin Not Reportable 06/04/19 02:05 Neonat Direct Bilirubin Not Reportable 06/04/19 02:05 Neonat Indirect Bili Not Reportable 06/04/19 02:05 AST 31 U/L (17-59) 06/04/19 02:05 ALT 30 U/L (<50) 06/04/19 02:05 Alkaline Phosphatase 71 U/L (38-126) 06/04/19 02:05 Creatine Kinase 194 U/L (55-170) H 06/04/19 02:05 Total Protein 7.4 g/dL (6.3-8.2) 06/04/19 02:05 Albumin 4.5 g/dL (3.5-5.0) 06/04/19 02:05 Urine Color YELLOW 06/04/19 04:52 Urine Appearance CLEAR 06/04/19 04:52 Urine pH 6.0 (5.0-9.0) 06/04/19 04:52 Ur Specific [place] 1.018 06/04/19 04:52 Urine Protein NEGATIVE mg/dL (NEGATIVE) 06/04/19 04:52 Urine Glucose (UA) NEGATIVE mg/dL (NEGATIVE) 06/04/19 04:52 Urine Ketones TRACE mg/dL (NEGATIVE) H 06/04/19 04:52 Urine Blood NEGATIVE (NEGATIVE) 06/04/19 04:52 Urine Nitrite NEGATIVE (NEGATIVE) 06/04/19 04:52 Urine Bilirubin NEGATIVE (NEGATIVE) 06/04/19 04:52 Urine Urobilinogen NEGATIVE mg/dL (<2.0) 06/04/19 04:52 Ur Leukocyte Esterase NEGATIVE (NEGATIVE) 06/04/19 04:52 Urine WBC (Auto) 0 /HPF 06/04/19 04:52 Urine RBC (Auto) 0 /HPF 06/04/19 04:52 Squamous Epi Cells Auto <1 /HPF 06/04/19 04:52 Urine Mucus (Auto) RARE /LPF 06/04/19 04:52 Urine Myoglobin <2 ng/mL (0-13) 06/04/19 04:52 Urine Ascorbic Acid NEGATIVE (NEGATIVE) 06/04/19 04:52 Impressions: Hand X-Ray 06/04/19 01:58 IMPRESSION: Soft tissue swelling copyright 2011 [employer]- All Rights Reserved
== END 2019-06-04 21:10 | disposition home or self-care (01) ==
LOC: ER 00:17 → EH 04:01 → 2S 07:55
PROVIDERS: ATTEND Surgery
DX: T63.001A Toxic effect of unspecified snake venom, accidental (unintentional), initial encounter (principal); S61.211A Laceration without foreign body of left index finger without damage to nail, initial encounter; W26.0XXA Contact with knife, initial encounter; J45.909 Unspecified asthma, uncomplicated; Z87.891 Personal history of nicotine dependence; Z29.12 Encounter for prophylactic antivenin
CPT/HCPCS: 99291; 96365; 96366; 96368; 36415; 82550; 85025; 85384; 85610; 85730; 83874; 80053; 81001; 85379; 73130; G0378; J0840; J7121; J7050; J2543